=== PATIENT | male | born 1980 | race Caucasian/White ===

== ENCOUNTER 2021-04-17 10:18 | Emergency (ER) | payer OTHER ==
[~2021-04-17] VITALS: Ht 180.3 cm; Wt 90.7 kg
== END 2021-04-17 13:18 | disposition home or self-care (01) ==
LOC: ER 10:18
DX: B34.9 Viral infection, unspecified (principal); Z11.52 Encounter for screening for COVID-19

== ENCOUNTER 2023-02-08 12:34 | Outpatient (CLI) | payer OTHER | END 2023-02-08 14:24 | disposition home or self-care (01) | LOC: RAD 12:34 | PROVIDERS: ATTEND General Practice | DX: M79.652 Pain in left thigh (principal); S76.302A Unspecified injury of muscle, fascia and tendon of the posterior muscle group at thigh level, left thigh, initial encounter | CPT/HCPCS: 73718 ==